=== PATIENT | female | born 1935 | race Caucasian/White ===

== ENCOUNTER 2021-02-26 10:04 | Outpatient (CLI) | payer MEDICARE, MEDICAID, SELFPAY ==
--- NOTE | ~2021-02-26 | US_ITS ---
EXAMINATION: US carotid duplex BI DATE: 02/26/2021 10:37 INDICATION: Carotid artery stenosis TECHNIQUE: Grayscale, color Doppler, and pulsed Doppler images of the cervical carotid arteries were obtained. The degree of vessel stenosis is placed in one of the following categories: normal, <50%, 5 0-69%, >=70% but less than near-occlusion, near-occlusion, or total occlusion. Note that percent sten osis relative to normal distal artery lumen diameter is indirectly measured from velocity measurement s as described by Deion, et al. Radiology 2003; 229:340-346. COMPARISON: None. FINDINGS: RIGHT: The right common carotid artery (CCA) peak systolic velocity (PSV) is 77 cm/s. The right internal car otid artery (ICA) PSV is 68 cm/s. The right ICA end-diastolic velocity (EDV) is 20 cm/s. The right IC A/CCA PSV ratio is 0.9. Grayscale and color Doppler images yield an estimate of <50% diameter reducti on from plaque in the ICA. The external carotid artery (ECA) PSV is 94 cm/s. There is antegrade flow in the right vertebral artery. LEFT: The left CCA PSV is 57 cm/s. The left ICA PSV is 237 cm/s. The left ICA EDV is 54 cm/s. The left ICA/ CCA PSV ratio is 4.1. Grayscale and color Doppler images yield an estimate of >=70% (but less than ne ar occlusion) diameter reduction from plaque in the ICA. The ECA PSV is 84 cm/s. There is antegrade f low in the left vertebral artery. IMPRESSION: 1. <50% stenosis in the right internal carotid artery. 2. >=70% (but less than near occlusion) stenosis in the left internal carotid artery. 3. Cardiac arrhythmia is present. Correlate with EKG. Reviewed, dictated and finalized at location B. IMPRESSION: 1. <50% stenosis in the right internal carotid artery. 2. >=70% (but less than near occlusion) stenosis in the left internal carotid a rtery. 3. Cardiac arrhythmia is present. Correlate with EKG.
== END 2021-02-26 10:05 | disposition home or self-care (01) ==
PROVIDERS: PCP Family Medicine
DX: I65.29 Occlusion and stenosis of unspecified carotid artery (principal)
CPT/HCPCS: 93880